=== PATIENT | female | born 1945 | race Two or more races ===

== ENCOUNTER 2023-01-16 09:58 | Emergency (ER) | payer MEDICARE ==
[~2023-01-16] VITALS: Ht 154.9 cm; Wt 55.0 kg
[2023-01-16 10:26] VITALS: BP 129/81
[2023-01-16] MEDS ORDERED: CEPH250S41 PO (11:32)
== END 2023-01-16 11:40 | disposition home or self-care (01) ==
LOC: ER 09:58
DX: Z43.3 Encounter for attention to colostomy (principal); Z90.49 Acquired absence of other specified parts of digestive tract; Z48.00 Encounter for change or removal of nonsurgical wound dressing